=== PATIENT | female | born 1980 | race Hispanic/Latino ===

== ENCOUNTER 2018-05-09 17:55 | Emergency (ER) | payer OTHER ==
[2018-05-09 18:23] VITALS: BP 109/75; PULSE 65; RESP 16; TEMP 97.7; O2SAT 100
--- NOTE | 2018-05-09 19:35 | ED PDOC ---
HPI: Female Pain Time Seen by Provider: 05/09/18 18:30 Chief Complaint (Nursing): Female Genitourinary Chief Complaint (Provider): Dysuria, Frequency and Hesitancy History Per: Patient Onset/Duration Of Symptoms: Other (x2 weeks) Current Symptoms Are (Timing): Still Present Severity: None Associated Symptoms: denies: Fever, Nausea, Vomiting Additional Complaint(s): 37 year old female presents to the emergency department complaining of dysuria, frequency and hesitancy x2 weeks. Patient states that she has been using cystex over the counter UTI medication with intermittent relief. Patient reports a frequent history of UTI and states that her symptoms are exactly the same. Denies abd pain, pelvic pain, fever, back pain, flank pain, nausea and vomiting. FAMILY PROVIDER,NO Abnormal Vaginal Bleeding: No Past Medical History Reviewed: Historical Data, Nursing Documentation, Vital Signs Vital Signs: Last Vital Signs Temp 97.7 F 05/09/18 18:20 Pulse 65 05/09/18 18:20 Resp 16 05/09/18 18:20 BP 109/75 05/09/18 18:20 Pulse Ox 100 05/09/18 18:20 - Medical History PMH: No Chronic Diseases - Surgical History Surgical History: No Surg Hx - Family History Family History: States: No Known Family Hx - Home Medications Home Medications: Ambulatory Orders Medication Instructions Recorded Nitrofurantoin Macrocrystals 100 mg PO BID #14 cap 05/09/18 [Macrobid] - Allergies Allergies/Adverse Reactions: Allergies Allergy/AdvReac Type Severity Reaction Status Date / Time No Known Allergies Allergy Verified 05/09/18 18:19 Review of Systems ROS Statement: Except As Marked, All Systems Reviewed And Found Negative Constitutional: Negative for: Fever Gastrointestinal: Negative for: Nausea, Vomiting Genitourinary Female: Positive for: Frequency, Other (hesitancy) Musculoskeletal: Negative for: Back Pain Physical Exam - Reviewed Nursing Documentation Reviewed: Yes Vital Signs Reviewed: Yes - Physical Exam Appears: Positive for: Well, Non-toxic, No Acute Distress Skin: Positive for: Normal Color, Warm. Negative for: Rash Eye Exam: Positive for: Normal appearance Gastrointestinal/Abdominal: Positive for: Normal Exam, Bowel Sounds, Soft. Negative for: Tenderness, Mass, Guarding, Rebound Back: Positive for: Normal Inspection. Negative for: L CVA Tenderness, R CVA Tenderness, Vertebral Tenderness Neurologic/Psych: Positive for: Alert, Oriented. Negative for: Aphasia, Facial Droop - Laboratory Results Urine POC: Negative Urine dip results: Negative for: Leukocyte Esterase, Blood, Nitrate, Ketones, Glucose, Bilirubin, Protein - ECG O2 Sat by Pulse Oximetry: 100 (RA) Pulse Ox Interpretation: Normal Medical Decision Making Medical Decision Makin Initial Impression 37 year old female presenting with dysuria, frequency and hesitancy Initial Plan: * Upreg * Udip * Chlamydia/GC RNA, TMA * Urine C&S * Reevaluation Patient states that 3 weeks ago she had right breast pain with discharge which has since resolved but is requesting to be evaluated. 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 Due to patients recent use of over the counter cystex , urine results may be distorted and therefore she will be treated empirically pending urine culture and GC chlamydia culture also sent. Pt informed of plan agrees and is requesting dose of antibiotics at this time. Advised to followup with OBGYN . MIKE HENSON, thank you for letting us take care of you today. Your provider was Tommie Sanchez MD and you were treated for POSS UTI. The emergency medical care you received today was directed at your acute symptoms. If you were prescribed any medication, please fill it and take as directed. It may take several days for your symptoms to resolve. Return to the Emergency Department if your symptoms worsen, do not improve, or if you have any other problems. Please contact your doctor or call one of the physicians/clinics you have been referred to that are listed on the Patient Visit Information form that is included in your discharge packet. Bring any paperwork you were given at discharge with you along with any medications you are taking to your follow up visit. Our treatment cannot replace ongoing medical care by a primary care provider outside of the emergency department. Thank you for allowing the [facility] team to be part of your care today. If you had a blood, urine, or wound culture: It will take several days for the results, if any change in treatment is needed we will contact you. Documented by Subha Carbone acting as a scribe for Laci Herrera PA-C. All medical record entries made by the Scribe were at my direction and personally dictated by me. I have reviewed the chart and agree that the record accurately reflects my personal performance of the history, physical exam, medical decision making, and the department course for this patient. I have also personally directed, reviewed, and agree with the discharge instructions and disposition. Disposition - Clinical Impression Clinical Impression: Female genitourinary symptoms, Urinary tract infection, Breast pain - Patient ED Disposition Is Patient to be Admitted: No Counseled Patient/Family Regarding: Studies Performed - Disposition Referrals: [facility] [place] [Outside] [facility] [Outside] Disposition: Routine/Home Disposition Time: 19:45 Condition: STABLE Additional Instructions: Follow up with OBGYN for further evaluation. Return to ED immediately if symptoms worsen. Prescriptions: Nitrofurantoin Macrocrystals [Macrobid] 100 mg PO BID #14 cap Instructions: Urinary Tract Infection, Adult (DC), Mastalgia (DC) Forms: [facility] (I[place]ic), [facility] ED School/Work Excuse Print Language: IRISH - POA Present On Arrival: None
== END 2018-05-09 20:35 | disposition home or self-care (01) ==
LOC: H.ER 17:55
DX: N39.0 Urinary tract infection, site not specified (principal); N64.4 Mastodynia